=== PATIENT | female | born 1960 | race Two or more races ===

== ENCOUNTER 2019-02-13 15:44 | Emergency (ER) | payer MEDICAID ==
[~2019-02-13] VITALS: Ht 162.6 cm; Wt 54.0 kg
[2019-02-13 15:48] VITALS: Ht 162.6 cm; Wt 54.0 kg
[2019-02-13 16:29] LABS: BASOPHIL % 0.8 % (0-2); PLATELET COUNT 157 x10^3mcL (130-400)
[2019-02-13 16:39] LABS: CALCIUM 9.4 mg/dL (8.5-10.1); CARBON DIOXIDE 25.4 mmol/L (21-32); CHLORIDE SERUM 105 mmol/L (98-107); CREATININE SERUM 0.7 mg/dL (0.6-1.0); GFR1 > 60 mL/min; GLUCOSE SERUM 96 mg/dL (74-106); POTASSIUM SERUM 3.4 mmol/L (3.5-5.1); SODIUM SERUM 140 mmol/L (136-145)
[2019-02-13 16:44] LABS: ALBUMIN 3.7 g/dL (3.4-5.0); ALKALINE PHOSPHATASE 81 U/L (46-116); ALT/SGPT 49 U/L (14-59); AST/SGOT 43 U/L (15-37); BILIRUBIN TOTAL 0.25 mg/dL (0.20-1.00); LIPASE 231 IU/L (73-393); TOTAL PROTEIN, SERUM 7.7 g/dL (6.4-8.2)
[2019-02-13 17:38] VITALS: BP 133/76
== END 2019-02-13 17:38 | disposition home or self-care (01) ==
LOC: ED 15:44
PROVIDERS: Emergency Medicine
DX: K29.70 Gastritis, unspecified, without bleeding (principal); R07.89 Other chest pain; Z90.49 Acquired absence of other specified parts of digestive tract
CPT/HCPCS: 36415; Q0092

== ENCOUNTER 2020-04-15 09:23 | Emergency (ER) | payer MEDICAID ==
[~2020-04-15] VITALS: Ht 157.5 cm; Wt 53.5 kg
[2020-04-15 09:37] VITALS: Ht 157.5 cm; Wt 53.5 kg
[2020-04-15 11:40] VITALS: BP 138/65
== END 2020-04-15 11:40 | disposition home or self-care (01) ==
LOC: ED 09:23
DX: N39.0 Urinary tract infection, site not specified (principal)
CPT/HCPCS: J1885